=== PATIENT | male | born 1945 | race Caucasian/White ===

== ENCOUNTER 2019-09-14 13:02 | Emergency (ER) | payer MEDICARE ==
[2019-09-14 13:07] VITALS: BP 154/76; PULSE 61; RESP 20; TEMP 98
--- NOTE | 2019-09-14 13:43 | ED ---
General Adult HPI - General Chief complaint: Fall Stated complaint: slip & fall/back pain Time Seen by Provider: 09/14/19 13:31 Source: patient, RN notes reviewed Mode of arrival: ambulatory Limitations: no limitations - History of Present Illness Initial comments: Patient 73-year-old male presented to the emergency room today with chief complaint slip and fall occurred around 10 AM this morning. He states he was behind his snowblower when he slipped falling backwards onto his back. He states he did not hit his head did not lose consciousness. He states there is no headache. He is not on any blood thinners. He does admit to pain to the lower back. He states it's worse when he tries went back. He states he is able to walk and ambulate. He does feel some pain down into the hips. He denies any other complaints or any other symptoms. Patient denies any recent fever, chills, shortness of breath, chest pain, back pain, abdominal pain, nausea or vomiting, headaches or visual changes, or any other complaints. - Related Data Allergies Allergy/AdvReac Type Severity Reaction Status Date / Time No Known Allergies Allergy Verified 09/14/19 13:04 Review of Systems ROS Statement: Those systems with pertinent positive or pertinent negative responses have been documented in the HPI. ROS Other: All systems not noted in ROS Statement are negative. Past Medical History Past Medical History: No Reported History History of Any Multi-Drug Resistant Organisms: None Reported Past Surgical History: Hernia Repair Past Psychological History: No Psychological Hx Reported Smoking Status: Never smoker Past Alcohol Use History: Daily Past Drug Use History: None Reported General Exam - General Exam Comments Initial Comments: General: The patient is awake and alert, in no distress, and does not appear acutely ill. Neck: The neck is supple, there is no tenderness or JVD. Cardiovascular: There is a regular rate and rhythm. No murmur, rub or gallop is appreciated. Respiratory: Lungs are clear to auscultation, respirations are non-labored, breath sounds are equal. No wheezes, stridor, rales, or rhonchi. Gastrointestinal: Soft nontender. Musculoskeletal: Patient does have normal appearance of the cervical, thoracic lumbar spine no step-off or deformity. Patient does have minimal tenderness in the lower thoracic and lumbar spine. There is no specific step-off. Shows good range of motion. Is ambulating in the room. Neurological: A&O x 3. CN II-XII intact, There are no obvious motor or sensory deficits. Coordination appears grossly intact. Speech is normal. Skin: Skin is warm and dry and no rashes or lesions are noted. Psychiatric: Cooperative, appropriate mood & affect, normal judgment. Limitations: no limitations Course Vital Signs 09/14/19 13:04 Temperature 98.0 F Pulse Rate 61 Respiratory 20 Rate Blood Pressure 154/76 O2 Sat by Pulse 98 Oximetry Medical Decision Making - Medical Decision Making Patient's x-rays were reviewed of the thoracic, lumbar, pelvis and are negative for any acute abdomen. There are degenerative changes. These were discussed with the patient. Patient is up ambulating here in emergency room. Patient states the pain has actually improved on its own. Patient will be discharged home is advised used Tylenol/Cipro for his pain as needed. He is advised to follow-up family doctor symptoms persist. Patient is advised return if any symptoms increase worsen or fail concerns. He states understanding and is in agreement. Disposition Clinical Impression: Fall, Back pain Disposition: HOME SELF-CARE Condition: Good Additional Instructions: Please use medication as discussed. Please follow-up with family doctor in the next 2 days. Please return to emergency room if the symptoms increase or worsen or for any other concerns. Is patient prescribed a controlled substance at d/c from ED?: No Referrals: Deangelo Doty MD [Primary Care Provider] - 1-2 days Time of Disposition: 14:47
--- NOTE | 2019-09-14 14:08 | XR ---
EXAMINATION TYPE: XR pelvis AP view DATE OF EXAM: 09/14/2019 COMPARISON: NONE HISTORY: Pain The osseous structures are intact and the joint spaces are preserved. No acute fracture is seen. Vi sualized bowel gas pattern is nonspecific. Arthropathy of the hips with hypertrophic change of the a cetabulum correlate for femoral acetabular impingement. SI joints symmetric. IMPRESSION: 1. No acute fracture.
--- NOTE | 2019-09-14 14:10 | XR ---
EXAMINATION TYPE: XR thoracic spine complete DATE OF EXAM: 09/14/2019 COMPARISON: NONE HISTORY: Pain TECHNIQUE: 3 views submitted FINDINGS: Alignment is anatomic. There is no compression deformities. Vertebral body height and disc interspa sally are maintained. Multilevel hypertrophic and degenerative change of the spine. Degenerative change lower cervical spine noted. IMPRESSION: 1. Multilevel degenerative and hypertrophic changes.
--- NOTE | 2019-09-14 14:12 | XR ---
EXAM TYPE: LUMBAR SPINE X RAY SERIES COMPARISON: NONE HISTORY: Pain TECHNIQUE: Three views are submitted. FINDINGS: Alignment is anatomic. The pedicles are intact. The transverse processes are intact. There is mult ilevel degenerative disc disease with most marked findings at L4-5 and L5-S1. There is a grade 1 ante rolisthesis of L4 on L5. Multilevel facet arthropathy. No compression deformities. Vascular calcifica tions noted. Mild diffuse osteopenia. IMPRESSION: 1. Multilevel degenerative disc disease and facet arthropathy with grade 1 anterolisthesis L4 on L5. Recommend follow-up MRI in a short-term basis.
== END 2019-09-14 15:12 | disposition home or self-care (01) ==
LOC: EC 13:02
DX: M51.36 Other intervertebral disc degeneration, lumbar region (principal); M43.16 Spondylolisthesis, lumbar region; M51.37 Other intervertebral disc degeneration, lumbosacral region; M51.34 Other intervertebral disc degeneration, thoracic region; W01.0XXA Fall on same level from slipping, tripping and stumbling without subsequent striking against object, initial encounter; Y92.009 Unspecified place in unspecified non-institutional (private) residence as the place of occurrence of the external cause
CPT/HCPCS: 72072; 72100; 72170; 99283

== ENCOUNTER → 2020-08-14 | Outpatient (CLI) | payer MEDICARE, OTHER ==
--- NOTE | 2020-08-14 09:48 | CT ---
EXAMINATION TYPE: CT neck chest w con DATE OF EXAM: 08/14/2020 COMPARISON: NONE HISTORY: Abnormal CXR and cervical adenopathy. CT DLP: 873.3 mGycm. Automated Exposure Control for Dose Reduction was Utilized. TECHNIQUE: CT of the neck and thorax are performed following with IV Contrast, patient injected with 100 mL of Isovue 300. FINDINGS: Neck: Airway: There is 9 mm low dense right thyroid nodule with low level coronal image 31. Parotid/submandibular glands: No gross abnormality seen. Carotid/Vascular Structures: Mild calcified plaque proximal left internal carotid artery just past ca rotid bulb without significant stenosis. There is small caliber left vertebral artery with dominant r ight vertebral artery filling the basilar artery. Osseous Structures: Slight levoconvex scoliotic curvature and coronal images centered in the upper th oracic spine. Moderate to severe disc space narrowing with endplate sclerosis and vacuum disc phenome non C5-C6 level. Moderate disc space narrowing C6-C7 level. Other: Some scattered prominent but subcentimeter lymph nodes throughout the neck bilaterally. No def initive suspicious greater than 1 cm neck lymph nodes are present. IMPRESSION: No suspicious mass or adenopathy in the neck. Chest: LUNGS: Calcified pleural plaques are present bilaterally suggesting prior asbestos exposure. Dependen t atelectasis in the bilateral lower lobes. No suspicious focal consolidation. No pleural effusion or pneumothorax. Single elongated 9 x 6 mm nodule or nodular consolidation in the lingula axial image 3 1 has more solid appearance on sagittal image 29 and coronal image 30. There is 7 mm subpleural nodul e right middle lobe axial image 34. MEDIASTINUM: There are no greater than 1 cm hilar or mediastinal lymph nodes. No pericardial effus ion is seen. Mild cardiomegaly. Moderate three-vessel coronary artery calcification which is noted m arked of underlying coronary artery disease. OTHER: [id number] multilevel spurring in the thoracic spine with exaggerated kyphosis. Nonspe cific 1.0 cm focal lucent lesion involving the T6 vertebral coronal image 70, lytic metastatic lesion and myeloma are in the differential. IMPRESSION: 1. 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 Correlate clinically. 2. Bilateral pulmonary nodules as noted above greater than 6 mm. Follow-up CT at 3-6 months time is a dvised as per Fleischner Society recommendations. 3. There is a lucent 1.0 cm lesion involving T6 vertebra, differential includes lytic metastatic dise ase and myeloma. Other etiologies including nonaggressive etiologies not excluded. Clinical correlati on and follow-up advised.
== END | disposition home or self-care (01) ==
LOC: RADCTMAIN 07:40
PROVIDERS: ATTEND Family Medicine
DX: J92.9 Pleural plaque without asbestos (principal); R91.8 Other nonspecific abnormal finding of lung field; R59.0 Localized enlarged lymph nodes
CPT/HCPCS: 82565; 84520; 70491; 71260; 36415; Q9967